=== PATIENT | male | born 1945 | race Caucasian/White ===

== ENCOUNTER 2023-02-09 14:50 | Outpatient (CLI) | payer MEDICARE, SELFPAY | END 2023-02-09 14:51 | disposition home or self-care (01) | LOC: AMB 02-28 15:20 | PROVIDERS: Visit Provider Internal Medicine | DX: S01.81XA Laceration without foreign body of other part of head, initial encounter (principal); R55 Syncope and collapse; W19.XXXA Unspecified fall, initial encounter; Y92.9 Unspecified place or not applicable | CPT/HCPCS: A0425; A0427 ==

== ENCOUNTER 2023-05-16 13:22 | Outpatient (CLI) | payer MEDICARE, SELFPAY | END 2023-05-16 13:23 | disposition home or self-care (01) | LOC: LKVREF 13:23 | PROVIDERS: Visit Provider Nurse Practitioner Family | DX: L03.90 Cellulitis, unspecified (principal) | CPT/HCPCS: 87070; 87186; 87205 ==